=== PATIENT | female | born 1960 | race African-American/Black ===

== ENCOUNTER 2016-11-11 13:34 | Emergency (ER) | payer OTHER, BC ==
[2016-11-11 13:39] VITALS: BP 120/74; PULSE 64; TEMP 98; BMI 33.5
--- NOTE | 2016-11-11 13:41 | PDOC ---
Rapid Medical Evaluation Time Seen by Provider: 11/11/16 13:36 Medical Evaluation: Allergies Allergy/AdvReac Type Severity Reaction Status Date / Time No Known Allergies Allergy Verified 11/11/16 13:36 11/11/16 13:36 I have performed a brief in-person evaluation of this patient. 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 Needle had blood in it. Pt applied alcohol to area Pertinent physical exam findings: needle stick puncture to dorsal aspect of rt 1st PIP joint I have ordered the following: employee exposure order set The patient will proceed to fast track for further evaluation.
[2016-11-11 14:47] LABS: BASOPHIL 0.5 % (0-2.0); EOSINOPHIL 1.1 % (0-4.5); MCH 30.3 pg (25.7-33.7); MCHC 32.9 g/dl (32.0-36.0); MEAN CELL VOLUME 92.1 fl (80-96); MEAN PLT VOLUME 8.1 fl (7.5-11.1); NEUTROPHILS 48.9 % (42.8-82.8); PLATELET COUNT 244 K/MM3 (134-434); RDW 13.7 % (11.6-15.6); WHITE BLOOD COUNT 4.9 K/mm3 (4.0-10.0)
[2016-11-11] MEDS ORDERED: DIPHTH,PERTUSS(ACELL),TET 0.5 ML DISP.SYRIN IM ONE (14:48)
--- NOTE | 2016-11-11 14:56 | PDOC ---
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 Pt had gloves on she washed her hands with soap and water and applied rubbing alcohol. Pt here for evaluation. Pt has no medical history or allergies. tetanus is unknown. Pt states she has had the heaptitis B vaccine. 11/11/16 14:56 11/11/16 14:57 Past History - Past Medical History Allergies/Adverse Reactions: Allergies No Known Allergies Allergy (Verified 11/11/16 13:36) Home Medications: Ambulatory Orders NK [No Known Home Medication] 11/11/16 - Social History Smoking History: No Smoking Status: Never smoked Number of Ciarettes Per Day: 0 Alcohol Use: none Drug Use: none Review of Systems - Review of Systems Able to Perform ROS?: Yes Is the patient limited Arabic proficient: No Constitutional: No: Symptoms Reported HEENTM: No: Symptoms Reported Respiratory: No: Symptoms reported Cardiac (ROS): No: Symptoms Reported ABD/GI: No: Symptoms Reported : No: Symptoms Reported Musculoskeletal: No: Symptoms Reported Integumentary: Yes: Symptoms Reported Neurological: No: Symptoms reported *Physical Exam - Vital Signs Last Vital Signs Temp Pulse Resp BP Pulse Ox 98.0 F 64 18 120/74 98 11/11/16 13:36 11/11/16 13:36 11/11/16 13:36 11/11/16 13:36 11/11/16 13:36 - Physical Exam General Appearance: Yes: Nourished, Appropriately Dressed HEENT: positive: EOMI, DANTE Extremity: positive: Normal Capillary Refill, Normal Range of Motion, Other ( right thumb with pinpoint prick noted no bleeding , superficial to the dorsal aspect between mcp and pip) Integumentary: positive: Normal Color, Dry, Warm Neurologic: positive: Fully Oriented, Alert, Normal Mood/Affect, Normal Response , Motor Strength 5/5 Post Exposure - ED Protocol - Exposure Treatment Washing/Decontamination: Soap/Water Source Patient HIV Status:: Unknown Prophylaxis for HIV discussed?: Yes Prophylaxis given?: No Prophylaxis refused?: Yes Baseline bloods drawn prophylaxis:(use *Exposure-Hosp Emp): Yes Additional Treatment:: DT - Referrals Employee Referred to Employee Health:: Yes (spoke to nurse who will see employee now to discuss getting consent ) Procedures - Laceration/Wound Repair Right Dorsal 1st digit Wound Explored: clean Wound's Depth, Shape: superficial (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 ) Medical Decision Making - Medical Decision Making 11/11/16 15:20 cc: accidental needlstick right thumb bloods drawn as per employee stick policy. I have spoke with the nurse in [facility] who will speak with the pt now to get the source tested. the source is admitted on the eight floor. pt refused MIGUEL at this time awaiting the results of the source . discussed with [employer] [facility]. tdap updated. *DC/Admit/Observation/Transfer Diagnosis at time of Disposition: Needlestick injury of finger Qualifiers: Encounter type: initial encounter Qualified Code(s): S61.239A - Puncture wound without foreign body of unspecified finger without damage to nail, initial encounter - Discharge Dispostion Disposition: HOME Condition at time of disposition: Good - Referrals Referrals: Estefani Garcia MD [Primary Care Provider] - - Patient Instructions Additional Instructions: please go to [facility] they will help you with getting the source patient tested keep the wound clean and dry - Post Discharge Activity Work/School Note: Back to Work
[2016-11-11 15:57] LABS: ALBUMIN 3.7 g/dl (3.4-5.0); ANION GAP 7 (8-16); BILIRUBIN,TOTAL 0.5 mg/dL (0.2-1.0); CALCIUM 9.2 mg/dL (8.5-10.1); CHOLESTEROL 210 mg/dL (50-200); CO2 29 mmol/L (21-32); CREATININE 0.9 mg/dL (0.55-1.02); GLUCOSE,RANDOM 97 mg/dL (74-106); LDH 231 U/L (84-246); PHOSPHOROUS 3.8 mg/dL (2.5-4.9); SGOT/AST 19 U/L (15-37); SGPT/ALT 20 U/L (12-78); URIC ACID 4.4 mg/dL (2.6-7.2)
[2016-11-11 15:58] LABS: ALK PHOS 60 U/L (45-117)
[2016-11-11 16:09] LABS: HIV 1 & 2 AB NEGATIVE; HIV 1 AGp24 NEGATIVE
[2016-11-12 08:06] LABS: HEP B SURFACE AB Reactive (.)
== END 2016-11-11 15:10 | disposition home or self-care (01) ==
LOC: JERFT 13:34
PROC: 3E0234Z Introduction of Serum, Toxoid and Vaccine into Muscle, Percutaneous Approach (ICD-10-PCS; principal; 2016-11-11)
DX: S61.031A Puncture wound without foreign body of right thumb without damage to nail, initial encounter (principal); Z77.21 Contact with and (suspected) exposure to potentially hazardous body fluids; W46.1XXA Contact with contaminated hypodermic needle, initial encounter; Y93.F9 Activity, other caregiving; Y92.230 Patient room in hospital as the place of occurrence of the external cause; Y99.0 Civilian activity done for income or pay
CPT/HCPCS: 36415; 80053; 82465; 82977; 83615; 84100; 84478; 84550; 85025; 86704; 86706; 87340; 87389; 90715; 99282-25